=== PATIENT | female | born 2000 | race Two or more races ===

== ENCOUNTER 2023-07-25 10:18 | Observation (INO) | payer OTHER ==
[~2023-07-25] VITALS: Ht 152.4 cm; Wt 68.9 kg
== END 2023-07-25 12:19 | disposition home or self-care (01) ==
LOC: LDRP 10:18 → UNDOADMOB 10:18 → LDRP 10:19 → UNDODISOB 12:19
PROVIDERS: ADMIT Nurse Practitioner Women's Health; ATTEND Nurse Practitioner Women's Health
DX: O26.853 Spotting complicating pregnancy, third trimester (principal); Z3A.38 38 weeks gestation of pregnancy
CPT/HCPCS: 59025; 76815; 81002; 94760; G0378